=== PATIENT | male | born 1985 | race Caucasian/White ===

== ENCOUNTER 2016-12-29 19:35 | Emergency (ER) | payer OTHER ==
[~2016-12-29] VITALS: Ht 182.9 cm; Wt 102.0 kg
--- NOTE | ~2016-12-29 | CR21 ---
[facility]. [facility] A [facility] RADIOLOGY TEXT RESULTS PATIENT: MYRIAM DOAN LOCATION: SED : [birth year] UNIT #: [id number] AGE: [address]: MIKE ELKINS SEX: M ORDER DR: [id number] [place] [id number] E MR#: [id number] Acc #: [id number] NAME: MYRIAM DOAN. : 1985 SEX: M STUDY DATE/TIME: UNIT: SED ROOM: STUDY DESCRIPTION: CR Ankle Min 3 Views Rt Attending Physician: Mike Elkins Ordering Physician: Mike Elkins Primary Care Physician: Primary Care Physician No MEDICAL IMAGING REPORT This report is preliminary unless electronic signature is present. EXAM Right ankle 3 views, 12/29/2016 at 20:19 hours HISTORY 31-year-old man who rolled foot and ankle today. Diffuse pain and swelling at the ankle and foot. COMPARISON None FINDINGS AP, lateral and oblique views demonstrate lateral greater than medial soft tissue swelling. There is no acute fracture or dislocation. There are tiny ossicles adjacent to the distal tip of the fibula. These are felt likely chronic. IMPRESSION Lateral greater than medial soft tissue swelling with no acute fracture or dislocation. There a few tiny ossicles adjacent to the distal tip of the fibula, felt chronic. Dictated by... Paola Dupree M.D. THIS IS AN ELECTRONICALLY VERIFIED REPORT Paola Dupree M.D. at 12/30/2016 2:35 PM MARIE/vero TD: 12/30/2016 10:41 JOB #: [id number] MEDICAL IMAGING REPORT [facility] A [facility] RADIOLOGY TEXT RESULTS PATIENT: MYRIAM DOAN LOCATION: SED : [birth year] UNIT #: [id number] AGE: [address]: MIKE ELKINS SEX: M ORDER DR: Page 1 of 1
--- NOTE | ~2016-12-29 | CR127 ---
[facility]. [facility] A Service of [facility] & [facility] RADIOLOGY TEXT RESULTS PATIENT: MYRIAM DOAN LOCATION: SED : [birth year] UNIT #: [id number] AGE: [address]: IMKE ELKINS SEX: M ORDER DR: [id number] [place] [id number] E MR#: [id number] Acc #: [id number] NAME: MYRIAM DOAN. : 1985 SEX: M STUDY DATE/TIME: 12/29/2016 UNIT: SED ROOM: STUDY DESCRIPTION: CR Foot Complete Min 3 View Rt Attending Physician: Mike Elkins Ordering Physician: Mike Elkins Primary Care Physician: Primary Care Physician No MEDICAL IMAGING REPORT This report is preliminary unless electronic signature is present. EXAM Right foot 3 views 12/29/2016 20:19 hours HISTORY Patient rolled foot ankle today. Diffuse foot and ankle pain and swelling. COMPARISON None. FINDINGS AP, lateral and oblique views demonstrate normal bone density. There is no fracture or dislocation. IMPRESSION Negative right foot. Dictated by... Paola Dupree M.D. THIS IS AN ELECTRONICALLY VERIFIED REPORT Paola Dupree M.D. at 12/30/2016 2:35 PM SMM/bia TD: 12/30/2016 10:42 JOB #: [id number] MEDICAL IMAGING REPORT Page 1 of 1
[~2016-12-29 19:35] MED LIST: ANXIETY MED; BACTRIM DS TABL1 TAB PO; FLOXIN OTIC5 M1 AS; NO MEDICATIONS; VICODIN 5/500 T1 TAB PO; VOLTAREN75 MG PO
[2016-12-29] MEDS ORDERED: PRILOSEC PO (19:54)
[2016-12-29] MEDS ORDERED: BENTYL20 MG PO (19:54)
== END 2016-12-29 21:35 | disposition home or self-care (01) ==
LOC: SED 19:35
DX: S93.401A Sprain of unspecified ligament of right ankle, initial encounter (principal); S93.601A Unspecified sprain of right foot, initial encounter; F41.9 Anxiety disorder, unspecified; W17.89XA Other fall from one level to another, initial encounter; Y92.830 Public park as the place of occurrence of the external cause
CPT/HCPCS: 29405; 73610; 73630; 99283